=== PATIENT | female | born 1990 | race Caucasian/White ===

== ENCOUNTER 2019-11-25 09:48 | Inpatient (IN) | payer OTHER ==
[~2019-11-25 09:48] MED LIST: BUTORPHANOL 1 MG/ML INJ IV PRN; METHYLERGONOVINE 0.2MG/ML AMP IM PRN; PROMETHAZINE INJ 25 MG/ML AMP IV PRN; Ringers Lactate 1,000 ML IV PRN
[2019-11-25] MEDS ORDERED: ROPIVACAINE HCL 100 ML IV PRN (09:50)
[2019-11-25] MEDS ORDERED: ROPIVACAINE HCL 0.2% 20ML AMP IV ONE (09:50)
[2019-11-25] MEDS ORDERED: FENTANYL CITR 100 MCG/2 ML IV ONE (09:50)
[2019-11-25] MEDS ORDERED: Ringers Lactate 1,000 ML IV ONE (09:58)
[2019-11-25] MEDS ORDERED: Ringers Lactate 1,000 ML IV SCH (10:00)
[2019-11-25] MEDS ORDERED: PENICILLIN G POT 5 MU/100 ML VIAL IV ONE (10:00)
[2019-11-25] MEDS ORDERED: OXYTOCIN/LR 20 UNIT/1,000 ML BAG IV SCH ×2 (10:00→16:00)
[2019-11-25 10:28] LABS: Absolute Lymphocytes (CBC) 1.6 K/uL (0.7-4.9); Basophils % 0.1 % (0-1.3); Hematocrit 33.3 % (36.0-45.0); Lymphocytes % 16.4 % (15.3-44.8); MPV 10.7 fL (7.6-11.3); RBC Red Blood Cell Count 3.94 M/uL (3.86-4.86)
[2019-11-25 10:29] LABS: Urine Appearance CLOUDY; Urine Bilirubin NEGATIVE (NEG); Urine Blood 2+ (NEG); Urine Color YELLOW; Urine Glucose NEGATIVE (NEG); Urine Protein TRACE (NEG); Urine Urobilinogen 0.2 mg/dL (0.2-1.0); Urine pH 6.5 (5.0-7.0)
[2019-11-25 11:17] LABS: Urine Microscopic Reflex ORDER UMIC
[2019-11-25 11:18] LABS: Urine Bacteria 20-50 /HPF (<20); Urine Culture Reflex Order REFLEXED; Urine Mucus 3+ /HPF (NONE SEEN)
[2019-11-25 12:24] VITALS: BMI 33.8
--- NOTE | 2019-11-25 13:08 | PREOPHP ---
Date of Admission: 11/25/2019 Ms. Benoit is a 29-year-old female, 2, para 1-0-0-1, now at approximately 3 9 weeks' gestation. She is admitted in prodromal labor, noted to be 2+ cm on admission. She has bee n followed by me during this without significant issues and positive beta strep carriage an d mild anemia. Past Medical History: Please see record. Family History: Please see record. Review of Systems: She reports no recent cough, cold, fever, or chills. No recent nausea or vomiting. No breast knots or lumps. No bowel or bladder issues. has been active. Physical Examination: General: Pleasant female in no apparent distress. Neck: Supple without adenopathy or thyromegaly. Lungs: Clear. Cardiac: Regular rate and rhythm without murmurs. Abdomen: Estimated weight approximately 7+ to 8 pounds. Pelvic: Cervix now 3 cm dilated, 80% effaced, vertex, and -2 station. scalp electrode placed. Clear fluid noted. She has received 1 dose of penicillin for beta str ep prophylaxis. She has been started on augmentation with Pitocin. We will place epidural catheters as soon as she receives her fluid bolus expect good progress in labor. TODD/STEVAN Voice ID: [id number]
[2019-11-25] MEDS ORDERED: PENICILLIN 2.5 MU in NA CHLORIDE 0.9% 100 ML IV SCH (14:00)
[2019-11-25] MEDS ORDERED: LIDOCAINE 1% MPF 30 ML VIAL ONE (15:14)
[2019-11-25] MEDS ORDERED: METHYLERGONOVINE 0.2 MG TAB PO PRN (15:35)
[2019-11-25] MEDS ORDERED: METHYLERGONOVINE 0.2MG/ML AMP IM PRN (15:35)
[2019-11-25] MEDS ORDERED: IBUPROFEN 600 MG TAB PO PRN (15:35)
[2019-11-25] MEDS ORDERED: ACETAMINOPHEN 500 MG TAB PO PRN (15:35)
[2019-11-25] MEDS ORDERED: ONDANSETRON 4 MG (ODT) TAB PO PRN (15:35)
[2019-11-25] MEDS ORDERED: CARBOPROST TROME 250 MCG/ML IM PRN (15:35)
--- NOTE | 2019-11-25 15:38 | P.BOP ---
Preoperative diagnosis: 39 wk Postoperative diagnosis: same, delivered Primary procedure: SCVD viable female Estimated blood loss: 150ml Anesthesia: epidural Complications: None Transferred to: Other ([id number]) Condition: Good
[2019-11-25 22:33] LABS: RPR (Rapid Plasma Reagin) NON-REACT (NON-REACT)
[2019-11-26 16:20] VITALS: BP 102/78; TEMP 97.9
--- NOTE | 2019-11-27 02:26 | DS ---
Date of Discharge: 11/26/2019 Discharge Diagnosis: A 39-week , delivered. Complications: Iron-deficiency anemia. Procedures: Artificial rupture of membranes plus augmentation of labor, prophylaxis for beta strep b acteria, placement of epidural catheter, spontaneous controlled vaginal delivery of viable female inf ant. Hospital Course: The patient is a 29-year-old female, 2, para 1-0-0-1, adm itted in prodromal labor. She had an uneventful labor and delivery with epidural anesthesia of a 7-p ound 11-ounce female , 9 and 9. She was dismissed on the first day, ambulator y, on a select diet with routine post vaginal delivery, activity restrictions, to be seen back in my office in 1 week. She is to continue taking her iron and vitamins. Lab work included an ad mission hemoglobin and hematocrit of 11.0 and 33.3, dismissal 31.3. She has had a urinalysis suspect ed of bladder infection, but we will await results, since it appeared to be a possibly contaminated s pecimen. She is RPR nonreactive and Rh positive blood type. MPG/MODL Voice ID: [id number] Report ID: [id number]
--- NOTE | 2019-11-27 09:54 | DN ---
Surgeon: Good Polanco MD Ms. Benoit is a 29-year-old female, 2, para 1-0-0-1 at approximately 39 wee ks gestation, admitted with in prodromal labor. After augmentation, artificial rupture of membranes and placement of epidural catheter, she had a first stage of labor of 4 hours and 10 minutes, second stage of labor of 16 minutes. She delivered by spontaneous controlled vaginal delivery, a 7 pounds 1 1 ounces female . After delayed cord clamping, the cord was cut and the infant placed on [facility]'s upper abdomen. Cord blood obtained. Placenta spontaneously expelled and appeared to be intact. Intrauterine exam revealed no retained placental fragments. Patient suffered no lacerations. She w as prophylaxed for beta strep bacteria, but 2 doses of penicillin prior to her delivery. Quantitativ e blood loss was 202 mL. TODD/STEVAN Voice ID: [id number] Report ID: [id number]
[2019-11-28] MEDS ORDERED: Ringers Lactate 1,000 ML IV ONE (07:04)
[2019-11-30 04:47] LABS: HBsAG Nonreactive (Nonreactive)
== END 2019-11-26 17:28 | disposition home or self-care (01) | DRG 807 ==
LOC: 2ND-WC 09:48
PROVIDERS: ADMIT Specialist; ATTEND Specialist
PROC: 10E0XZZ Delivery of Products of Conception, External Approach (ICD-10-PCS; principal; 2019-11-25)
PROC: 10907ZC Drainage of Amniotic Fluid, Therapeutic from Products of Conception, Via Natural or Artificial Opening (ICD-10-PCS; 2019-11-25)
PROC: 4A1H74Z Monitoring of Products of Conception, Cardiac Electrical Activity, Via Natural or Artificial Opening (ICD-10-PCS; 2019-11-25)
PROC: 00HU33Z Insertion of Infusion Device into Spinal Canal, Percutaneous Approach (ICD-10-PCS; 2019-11-25)
DX: O99.824 Streptococcus B carrier state complicating childbirth (principal); Z37.0 Single live birth; O99.02 Anemia complicating childbirth; Z3A.39 39 weeks gestation of pregnancy
CPT/HCPCS: 36415; 81003; 81015; 85014; 85025; 86592; 86901; 87086; 87088; 87340; J2210; J2590; J2795; J3010; J7120